=== PATIENT | female | born 1940 | race African-American/Black ===

== ENCOUNTER 2018-06-30 13:29 | Inpatient (IN) | payer MEDICARE ==
[~2018-06-30] VITALS: Ht 165.1 cm; Wt 75.6 kg
--- NOTE | ~2018-06-30 | MORECARE ---
CASE MANAGEMENT DISCHARGE SUMMARY PATIENT: CAROL REYES UNIT: [id number] ADM DATE: 07/01/18 AGE: 78 : 40 SEX: F ROOM/BED: D.2108 AUTHOR: FADIA ROMERO PHYSICIAN: REFERRING PHYSICIAN: ANN HUNTER MD DATE OF SERVICE: 07/03/18 Discharge Plan Patient Name: CAROL REYES Facility: [facility]:[place] : 1940 Planned Disposition: Home Anticipated Discharge Date: 07/03/18 Discharge Date: Expected LOS: 2 Initial Reviewer: [id number] Initial Review Date: 07/03/2018 Generated: 07/03/18 6:00 pm Coverage Notice Reviewer: [email or web address] Srikanth Montgomery Notice Issued Date-Time: 07/01/2018 11:16 Notice Type: Medicare Outpatient Observation Notice Notice Delivered To: Patient Relationship to Patient: Self Hand Filer Balance Wheel Name: Delivery Method: HAND - Hand Delivered Anna Days: Prior Verbal Notification: Recipient Understood Notice: Yes Recipient Signature: Yes Med Rec Note Co-signed by Attending: Coverage Notice Comment: Patient Name: CAROL REYES Page [phone] at 1700 All edits/amendments must be made on the electronic document DICTATION DATE: 07/03/18 170 BAG SORTER: KASSIDY 07/03/18 1700 RPT#: [id number] DC DATE: STATUS: ADM IN [place] [address] [place] [address] END OF REPORT
--- NOTE | ~2018-06-30 | MORECARE ---
CASE MANAGEMENT DISCHARGE SUMMARY PATIENT: CAROL REYES UNIT: [id number] ADM DATE: 07/01/18 AGE: 78 : 40 SEX: F ROOM/BED: D.2102 AUTHOR: HEATHER,DOC PHYSICIAN: REFERRING PHYSICIAN: ANN RODRÍGUEZ MD DATE OF SERVICE: 07/03/18 Discharge Plan Patient Name: CAROL REYES Facility: [facility]:[place] : 1940 Planned Disposition: Home Anticipated Discharge Date: 07/03/18 Discharge Date: Expected LOS: 2 Initial Reviewer: [email or web address] Initial Review Date: 07/03/2018 Generated: 07/03/18 6:09 pm Comments DCP- Discharge Planning Updated by [email or web address]: Rigo Krueger on 07/03/18 4:[address] Patient Name: CAROL REYES Admission Status: Urgent Accout number: [id number] Admission Date: 07-01-2018 : 1940 Admission Diagnosis: Attending: Ann Rodríguez Current LOS: 2 Anticipated DC Date: 07-03-2018 Planned Disposition: Home Primary Insurance: MEDICARE A & B Discharge Planning Comments: CM MET WITH PT IN ROOM TO DISCUSS DISCHARGE PLANNING AND NEEDS. PT REPORTS LIVING AT HOME INDEPENDENTLY, ALSO IN THE HOME IS PT'S DAUGHER. PT HAS NO MEDICAL EQUIPMENT AND NO OUTSIDE SERVICES ASSISTING IN THE HOME. PT DRIVES SELF TO AND FROM DIALYSIS ON MWF, FIRST SHIFT, 0545 AM IN [place]. CM DISCUSSED AVAILABILITY OF HOME HEALTH, REHAB SERVICES AND MEDICAL EQUIPMENT. PT DENIES DISCHARGE NEEDS, REPORTS HER SON WILL PICK HER UP FOR DISCHARGE HOME. MAINTENANCE SHOP MANAGER NURSE NOTIFIED. Sharepoint Trainer: Rigo Krueger DCPIA - Discharge Planning Initial Assessment Updated by [email or web address]: Rigo Krueger on 07/03/18 5:04 pm * Is the patient Alert and Oriented? Yes * How many steps to enter\exit or inside your home? * PCP NONE - MEDICAL CL[facility] IN [place], [place]. * Pharmacy [facility] IN [place], [place]. * Preadmission Environment Home with Family * ADLs Independent * Equipment None * Other Equipment NO MEDICAL EQUIPMENT PROVIDER * List name and contact numbers for known caregivers / representatives who currently or will assist patient after discharge: SARAH BETH REYES, SON, * Verbal permission to speak to the caregivers and representatives has been obtained from the patient. N/A * Community resources currently utilized Other * Please name any agencies selected above. OUTPATIENT DIALYSIS, [facility], [address], [facility] IN [place], [place] SELF * Additional services required to return to the preadmission environment? No * Can the patient safely return to the preadmission environment? Yes * Has this patient been hospitalized within the prior 30 days at any hospital? No Coverage Notice Reviewer: [email or web address] Srikanth Montgomery Notice Issued Date-Time: 07/01/2018 11:16 Notice Type: Medicare Outpatient Observation Notice Notice Delivered To: Patient Relationship to Patient: Self On Air Director Name: Delivery Method: HAND - Hand Delivered Anna Days: Prior Verbal Notification: Recipient Understood Notice: Yes Recipient Signature: Yes Med Rec Note Co-signed by Attending: Coverage Notice Comment: Last DP export: 07/03/18 4:00 Patient Name: CAROL REYES Page [phone] at 1709 All edits/amendments must be made on the electronic document DICTATION DATE: 07/03/181708 PRESS SUPERVISOR: KASSIDY 07/03/181708 RPT#: [id number] DC DATE: STATUS: ADM IN [facility] [address] [place] [address] END OF REPORT
[2018-06-30 14:56] VITALS: BP 160/60; BMI 20.8
[2018-06-30 15:52] LABS: BASOPHILS 0.1 % (0-2); EOSINOPHILS 0.4 % (0-7); HEMATOCRIT 28.9 % (36.0-48.0); HEMOGLOBIN 9.1 g/dL (12-16); IMMATURE GRANULOCYTES 0.2 % (0-5); LYMPHOCYTES 9.1 % (15-50); MCH 31.1 pg (26.0-34.0); MCHC 31.5 g/dL (31.0-37.0); MCV 98.6 fL (80.0-100.0); MEAN PLATELET VOLUME 8.9 fL (7.4-10.4); MONOCYTES 3.9 % (2-11); NEUTROPHILS 86.3 % (40-80); PLATELET COUNT 181 10x3/uL (130-400); RBC 2.93 10x6/uL (4.00-5.40); RDW 14.4 % (11.5-14.5); WBC 11.2 10x3/uL (4.8-10.8)
[2018-06-30 15:53] VITALS: BP 160/60
[2018-06-30 16:04] LABS: INR 1.07 (0.85-1.17); PROTIME 13.5 SECONDS (11.6-15.0)
[2018-06-30 16:08] LABS: ALBUMIN 2.9 g/dL (3.4-5.0); ANION GAP 18.5 mmol/L (8-16); BILIRUBIN - TOTAL 0.39 mg/dL (0.2-1.3); CARBON DIOXIDE 22.7 mmol/L (21.0-32.0); POTASSIUM - SERUM 5.2 mmol/L (3.5-5.1); PROTEIN - SERUM 6.8 g/dL (6.4-8.2)
[2018-06-30] MEDS ORDERED: HYDRALAZINE HC100 MG PO (17:35)
[2018-06-30] MEDS ORDERED: COZAAR100 MG PO (17:36)
[2018-06-30] MEDS ORDERED: NORVASC10 MG PO (17:36)
[2018-06-30] MEDS ORDERED: ISOSORBIDE MONO60 M1 PO (17:37)
[2018-06-30] MEDS ORDERED: METOPROLOL TART50 MG PO (17:40)
[2018-06-30 21:46] VITALS: BP 137/77
[2018-07-01 02:34] VITALS: BP 153/54
[2018-07-01 06:34] VITALS: BP 132/50
[2018-07-01 07:43] LABS: ANION GAP 19.9 mmol/L (8-16); CALCIUM 8.3 mg/dL (8.5-10.1); CREATININE - SERUM 15.1 mg/dL (0.6-1.3); POTASSIUM - SERUM 4.9 mmol/L (3.5-5.1)
[2018-07-01 07:46] LABS: BASOPHILS 0.1 % (0-2); EOSINOPHILS 0.1 % (0-7); IMMATURE GRANULOCYTES 0.1 % (0-5); LYMPHOCYTES 20.3 % (15-50); MCH 31.7 pg (26.0-34.0); MCHC 32.7 g/dL (31.0-37.0); MCV 96.8 fL (80.0-100.0); MEAN PLATELET VOLUME 9.4 fL (7.4-10.4); MONOCYTES 8.1 % (2-11); NEUTROPHILS 71.3 % (40-80); RDW 14.2 % (11.5-14.5)
[2018-07-01 07:51] LABS: RBC 2.18 10x6/uL (4.00-5.40); WBC 6.7 10x3/uL (4.8-10.8)
[2018-07-01 07:53] LABS: HEMATOCRIT 21.1 % (36.0-48.0); HEMOGLOBIN 6.9 g/dL (12-16); PLATELET COUNT 141 10x3/uL (130-400)
[2018-07-01 08:20] VITALS: BP 143/49
[2018-07-01 10:34] VITALS: Ht 165.1 cm; Wt 75.6 kg
[2018-07-01 12:23] VITALS: BP 141/47
[2018-07-01 20:36] VITALS: BP 158/56
[2018-07-02] VITALS: BP 161/54
[2018-07-02 04:00] VITALS: BP 103/43
[2018-07-02 05:56] LABS: BASOPHILS 0.2 % (0-2); EOSINOPHILS 0.7 % (0-7); IMMATURE GRANULOCYTES 0.4 % (0-5); LYMPHOCYTES 17.8 % (15-50); MCH 32.1 pg (26.0-34.0); MEAN PLATELET VOLUME 8.8 fL (7.4-10.4); MONOCYTES 5.9 % (2-11); RBC 2.12 10x6/uL (4.00-5.40); RDW 14.5 % (11.5-14.5)
[2018-07-02 06:24] LABS: ANION GAP 19.2 mmol/L (8-16); CALCIUM 7.9 mg/dL (8.5-10.1); CARBON DIOXIDE 22.2 mmol/L (21.0-32.0); CREATININE - SERUM 16.1 mg/dL (0.6-1.3); PHOSPHOROUS 4.1 mg/dL (2.5-4.9); POTASSIUM - SERUM 5.4 mmol/L (3.5-5.1)
[2018-07-02 06:48] LABS: HEMOGLOBIN 6.8 g/dL (12-16); MCV 94.3 fL (80.0-100.0); PLATELET COUNT 106 10x3/uL (130-400); WBC 12.8 10x3/uL (4.8-10.8)
[2018-07-02 08:35] VITALS: BP 107/44
[2018-07-02 15:44] VITALS: BP 119/47
[2018-07-02 16:11] LABS: HEMATOCRIT 26.1 % (36.0-48.0)
[2018-07-03 04:00] VITALS: BP 112/45
[2018-07-03 05:01] LABS: BASOPHILS 0.2 % (0-2); EOSINOPHILS 1.5 % (0-7); HEMATOCRIT 24.2 % (36.0-48.0); HEMOGLOBIN 8.3 g/dL (12-16); IMMATURE GRANULOCYTES 0.5 % (0-5); LYMPHOCYTES 17.4 % (15-50); MCHC 34.3 g/dL (31.0-37.0); MEAN PLATELET VOLUME 9.7 fL (7.4-10.4); MONOCYTES 8.4 % (2-11); PLATELET COUNT 107 10x3/uL (130-400); RDW 15.7 % (11.5-14.5); WBC 10.2 10x3/uL (4.8-10.8)
[2018-07-03 05:24] LABS: MCV 90.3 fL (80.0-100.0); RBC 2.68 10x6/uL (4.00-5.40)
[2018-07-03 05:29] LABS: CALCIUM 8.2 mg/dL (8.5-10.1); PHOSPHOROUS 4.4 mg/dL (2.5-4.9)
[2018-07-03 05:31] LABS: ANION GAP 12.6 mmol/L (8-16); CARBON DIOXIDE 28.4 mmol/L (21.0-32.0); CREATININE - SERUM 10.7 mg/dL (0.6-1.3)
[2018-07-03 08:13] VITALS: BP 117/45
== END 2018-07-03 18:00 | disposition home or self-care (01) | DRG 811 ==
LOC: D.M2 13:29 → OBSVTIME 13:30 → D.M2 07-01 11:59
PROVIDERS: Internal Medicine Nephrology
DX: D64.9 Anemia, unspecified (principal); N18.6 End stage renal disease; Z99.2 Dependence on renal dialysis